=== PATIENT | female | born 1985 | race Two or more races ===

== ENCOUNTER 2025-01-28 05:35 | Emergency (ER) | payer OTHER ==
[~2025-01-28] VITALS: Ht 172.7 cm; Wt 68.0 kg
--- NOTE | 2025-01-28 06:40 | ED.PDOC ---
Epistaxis- HPI HPI Comments 39 y/o F, BIBA, presents to the ED for CC of epistaxis. Patient states, she has been experiencing uncontrolled epistaxis onset, [id number]. Patient reports, that she recently had surgery in [place], [place] for a deviated septum repair. Since arriving in ED, patient has lost approximately 400mL of bleed; bleeding is uncontrolled at this time. Patient c/o current symptoms of lightheadedness and weakness. Patient denies trauma, injury, or fall. No other symptoms or modifiers are present at this time. Chief Complaint: Nose Bleed Time Seen by MD: 06:15 Reviewed Notes: Nurses Notes, Medications, Allergies Allergies: Coded Allergies: NO KNOWN ALLERGIES (Unverified , 01/28/25) Information Source: Patient Mode of Arrival: EMS Timing: Hours Duration: Since onset Prehospital treatment: None Location: Both narises Mechanism: Spontaneous onset Circumstances: Unknown Use of: None History of: None Last Tetanus: Unknown Nose: Normal Nose: Intranasal/Septum: Blood Bleeding Status: Active bleeding Bleeding Amount: Moderate Source: Both Associated signs and symptoms: None Past Medical History PAST MEDICAL HISTORY: Denies Surgical History (Other): deviated septum 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 Family History Family History: Unknown Social History Smoker: Non-Smoker Alcohol: Denies ETOH Use Drugs: Denies Drug Use Lives In: Home Constitutional: denies: chills, diaphoresis, fatigue, fever, malaise, sweats, weakness, others EENTM: reports: nose bleeding; denies: blurred vision, double vision, ear bleeding, ear discharge, ear drainage, ear pain, ear ringing, eye pain, eye redness, hearing loss, mouth pain, mouth swelling, nasal discharge, nose congestion, nose pain, photophobia, tearing, throat pain, throat swelling, voice changes, others Respiratory: denies: cough, hemoptysis, orthopnea, SOB at rest, shortness of breath, SOB with excertion, stridor, wheezing, others Cardiovascular: denies: chest pain, dizzy spells, diaphoresis, Dyspnea on exertion, edema, irregular heart beat, left arm pain, lightheadedness, palpitations, PND, syncope, others Gastrointestinal: denies: abdomen distended, abdominal pain, blood streaked bowels, constipated, diarrhea, dysphagia, difficulty swallowing, hematemesis, melena, nausea, poor appetite, poor fluid intake, rectal bleeding, rectal pain, vomiting, others Genitourinary: denies: abnormal vagina bleeding, burning, dyspareunia, dysuria, flank pain, frequency, hematuria, incontinence, pain, , vagina discharge, urgency, others Neurological: denies: dizziness, fainting, headache, left sided numbness, left sided weakness, numbness, paresthesia, pre-existing deficit, right sided numbness, right sided weakness, seizure, speech problems, tingling, tremors, weakness, others Musculoskeletal: denies: back pain, gout, joint pain, joint swelling, muscle pain, muscle stiffness, neck pain, others Integumetry: denies: bruises, change in color, change in hair/nails, dryness, laceration, lesions, lumps, rash, wounds, others Allergic/Immunocompromised: denies: Difficulty Healing, Frequent Infections, Hives, Itching, others Hematologic/Lymphatic: denies: anemia, blood clots, easy bleeding, easy bruising, swollen glands, others Endocrine: denies: excessive hunger, excessive sweating, excessive thirst, excessive urination, flushing, intolerance to cold, intolerance to heat, unexplained weight gain, unexplained weight loss, others Psychiatric: denies: anxiety, bipolar disorder, depression, hopeless, panic disorder, schizophrenia, sleepless, suicidal, others All Other Systems: Reviewed and Negative Physical Exam General Appearance: Moderate Distress HEENT: Other (Bilateral nosebleed) Neck: Full Range of Motion, Non-Tender, Normal, Normal Inspection Respiratory: Chest Non-Tender, Lungs Clear, No Accessory Muscle Use, No Respiratory Distress, Normal Breath Sounds Cardiovascular: No Edema, No JVD, No Murmur, No Gallop, Normal Peripheral Pulses, Regular Rate/Rhythm Breast Exam: Deferred Gastrointestinal: No Organomegaly, Non Tender, No Pulsatile Mass, Normal Bowel Sounds, Soft Genitalia: Deferred Pelvic: Deferred Rectal: Deferred Extremities: No calf tenderness, Normal capillary refill, Normal inspection, Normal range of motion, Non-tender, No pedal edema Musculoskeletal : Apperance: Normal Neurologic: Alert, nursing aide II-XII nml as Tested, No Motor Deficits, Normal Affect, Normal Mood, No Sensory Deficits Cerebellar Function: NOT DONE Reflexes: NOT DONE Skin: Pallor Peripheral Pulses: 3+ Radial (R), 3+ Radial (L) Lymphatic: No Adenopathy Was a procedure done? Was a procedure done?: Yes Sedation Sedation?: No Nasal Cautery and Pack Indicaton: Anterior epitaxis Silver nitrate: Bilateral Hemostasis: Was obtained Packing: Other (Surgicel) Differential Diagnosis (NSB) Differential Diagnosis: Anterior Nasal Bleed, Posterior Nasal Bleed X-Ray, Labs, Meds, VS Vital Signs Date Time Temp Pulse Resp B/P (MAP) Pulse Ox O2 Delivery O2 Flow Rate FiO2 01/28/25 05:41 97.6 120 20 113/94 (100) 97 97.6 Current Medications Medications (Trade) Dose Ordered Sig/Adenike Route Start Time Stop Time Status Last Admin Sodium Chloride 2,000 ml @ 1,000 mls/hr Q2H ONCE IV 01/28/25 06:45 01/28/25 08:44 01/28/25 06:44 Tranexamic Acid 1000 mg/Sodium Chloride 110 ml @ 300 mls/hr ONCE ONCE IV 01/28/25 06:45 01/28/25 07:06 DC 01/28/25 06:54 Patient alert. She is pale. Nosebleed. Saturation pristine on room air. Establish intravenous access. Was given fluids. Was given TXA. Pack the nose. She did vagal. She had a nasal deviated septum repair in [facility] early part of the month. Continue monitoring. Time of 1ST Reevaluation: 06:45 Reevaluation 1ST: Unchanged Patient Education/Counseling: Diagnosis, Treatment Family Education/Counseling: No Family Present Departure 1 Departure Time of Disposition: 07:12 Impression: Primary Impression: Nosebleed Additional Impression: Vasovagal syncope Disposition: 09 ADMITTED INPATIENT Admit to: Med Surg Condition: Guarded Critical Care Note Critical Care Time?: Yes (90 min-critical care time only) Critical care comment: Vasovagal syncope Stability Stability form required: No Heart Score Heart Score: Heart Score Response (Comments) Value History N/A 0 EKG N/A 0 Age N/A 0 Risk Factors N/A 0 Troponin N/A 0 Total 0 I personally scribed for CONCETTA JOHNSON MD ([email or web address]) on 01/28/25 at 06:40. Electronically submitted by Saniya Brand ([email or web address]). CONCETTA JOHNSON MD Jan 28, 2025 06:40
[2025-01-28] MEDS: SODIUM CHLORIDE 0.9% 2,000 ML IV ONE ×2 (06:44→10:08)
[2025-01-28] MEDS: TRANEXAMIC ACID 1,000 MG in SODIUM CHL 0.9% 100 ML IV ONE (06:54)
[2025-01-28] MEDS: TRANEXAMIC ACID 10 ML ONE (06:54)
[2025-01-28] MEDS: SODIUM CHLORIDE 0.9% 1,000 ML IV ONE ×2 (07:40→08:21)
[2025-01-28 07:42] LABS: Hemoglobin 8.0 g/dL (12.2-16.2); Nucleated Red Blood Cells % 0.0 %
[2025-01-28 07:47] LABS: Hematocrit 23.8 % (36.0-46.0); Mean Corpuscular Hemoglobin 28.3 pg (28.0-32.0); Mean Corpuscular Volume 83.9 fL (80.0-100.0)
[2025-01-28 07:49] LABS: Potassium 4.0 mmol/L (3.5-5.1); Sodium 141 mmol/L (136-145)
[2025-01-28 07:50] LABS: Anion Gap 6 (5-15); Carbon Dioxide 24 mmol/L (20-31)
[2025-01-28 07:55] LABS: BUN/Creatinine Ratio 24.1 (10.0-20.0); Blood Urea Nitrogen 19 mg/dL (9-23)
[2025-01-28 08:03] LABS: Calcium 7.7 mg/dL (8.7-10.4); Chloride 111 mmol/L (98-107); Glucose 213 mg/dL (74-106)
[2025-01-28 09:32] VITALS: PULSE 88; RESP 26; O2SAT 98
[2025-01-28 09:50] LABS: Urine Protein, UAD Negative (Negative)
[2025-01-28 10:49] VITALS: BP 104/47; PULSE 89; RESP 16; TEMP 98.1; O2SAT 100
== END 2025-01-28 09:23 | disposition short-term general hospital (02) ==
LOC: EDBD 05:35 → ER 05:35
DX: R04.0 Epistaxis (principal); R55 Syncope and collapse; Z98.890 Other specified postprocedural states
CPT/HCPCS: 30901; 36415; 80048; 81001; 85025; 96361; 96365; 96366; 99285; J7030